=== PATIENT | male | born 1955 | race Caucasian/White ===

== ENCOUNTER → 2016-04-22 | Outpatient (CLI) | payer SELFPAY | END | disposition home or self-care (01) | LOC: PCVCIMAG 08:42 | PROVIDERS: ATTEND Internal Medicine | DX: I42.9 Cardiomyopathy, unspecified (principal); I48.2 Chronic atrial fibrillation; I10 Essential (primary) hypertension; E78.5 Hyperlipidemia, unspecified | CPT/HCPCS: 80061; 93005; 93306; G0463 ==